=== PATIENT | male | born 1975 | race Caucasian/White ===

== ENCOUNTER 2024-03-21 08:47 | Emergency (ER) | payer MEDICAID ==
[~2024-03-21] VITALS: Ht 175.3 cm; Wt 70.0 kg
[2024-03-21 08:50] VITALS: TEMP 97.8
[2024-03-21] MEDS ORDERED: AMOX500C2 PO (09:50)
[2024-03-21] MEDS: amoxicillin 250mg capsule PO ONE (11:20)
[2024-03-21 11:22] VITALS: BP 149/70; PULSE 55; RESP 18; O2SAT 98
== END 2024-03-21 11:27 | disposition home or self-care (01) ==
LOC: ER 08:47
DX: K08.89 Other specified disorders of teeth and supporting structures (principal); K04.7 Periapical abscess without sinus; Z79.2 Long term (current) use of antibiotics
CPT/HCPCS: 99283